=== PATIENT | female | born 1965 | race Caucasian/White ===

== ENCOUNTER → 2017-02-02 | Outpatient (CLI) | payer BC, OTHER ==
--- NOTE | 2017-02-02 15:22 | PCVCIMAG ---
APPROVED REPORT Study performed: 02/02/2017 14:18:25 EXAM: Comprehensive 2D, Doppler, and color-flow Echocardiogram Patient Location: Echo lab Status: routine BSA: 1.70 HR: 63 bpmBP: 100/60 mmHg Rhythm: NSR Other Information Study Quality: Adequate Indications Hypotension palpitations 2D Dimensions IVSd: 6.95 (7-11mm)LVOT Diam: 19.14 (18-24mm) LVDd: 38.38 mm PWd: 7.05 (7-11mm)Ascending Ao: 21.67 (22-36mm) LVDs: 28.54 (25-40mm) Left Atrium: 24.09 (27-40mm) Aortic Root: 24.66 mm LV Single Plane 4CH: 68.75 % Bravo's LVEF: 51.15 % Volumes Left Atrial Volume (Systole) Single Plane 4CH: 25.61 mLSingle Plane 2CH: 24.79 mL LA ESV Index: 16.00 mL/m2 Aortic Valve AoV Peak Erik.: 1.54 m/s AO Peak Gr.: 9.47 mmHgLVOT Max P.08 mmHg LVOT Max V: 1.13 m/s GABBIE Vmax: 2.11 cm2 Mitral Valve E/A Ratio: 1.9 MV Decel. Time: 225.08 ms MV E Max Erik.: 0.99 m/s MV A Erik.: 0.53 m/s TDI E/Lateral E': 6.19E/Medial E': 7.62 Medial E' Erik.: 0.13 m/s Lateral E' Erik.: 0.16 m/s Pulmonary Valve PV Peak Gr.: 3.36 mmHg Pulmonary Vein P Vein S: 0.48 m/sP Vein A: 0.32 m/s P Vein D: 0.61 m/sP Vein A Dur.: 58.8 msec P Vein S/D Ratio: 0.79 Tricuspid Valve TR Peak Erik.: 2.59 m/s TR Peak Gr.: 26.78 mmHg Left Ventricle The left ventricle is normal size. There is normal LV segmental wall motion. There is normal left ventricular wall thickness. Left ventricular systolic function is normal. The left ventricular ejection fraction is within the normal range. LVEF is 60-65%. The left ventricular diastolic function is normal. Right Ventricle The right ventricle is normal size. The right ventricular systolic function is normal. Atria The left atrium size is normal. The right atrium size is normal. Aortic Valve The aortic valve is normal in structure. No aortic regurgitation is present. There is no aortic valvular stenosis. Mitral Valve The mitral valve is normal in structure. There is no mitral valve regurgitation noted. No evidence of mitral valve stenosis. Tricuspid Valve The tricuspid valve is normal in structure. Trace tricuspid regurgitation. Pulmonary artery pressure is 34mmhg. Pulmonic Valve The pulmonary valve is normal in structure. There is no pulmonic valvular regurgitation. Great Vessels The aortic root is normal in size. IVC is normal in size and collapses with >50% inspiration Pericardium There is no pericardial effusion. <Conclusion> The left ventricle is normal size. LVEF is 60-65%. The left ventricular diastolic function is normal. The right ventricle is normal size. The left atrium size is normal. The aortic valve is normal in structure. There is no mitral valve regurgitation noted. Trace tricuspid regurgitation. Pulmonary artery pressure is 34mmhg. There is no pericardial effusion.
--- NOTE | 2017-02-02 16:53 | PCVCIMAG ---
EXAM: AORTOILIAC DUPLEX INDICATION: Peripheral arterial disease FINDINGS: AORTA: Suprarenal aorta measures maximum diameter of 2.5 cm. There is not a fusiform infrarenal aortic aneurysm. The infrarenal aorta measures maximum diameter of 1.7 cm. No aortic stenosis. RIGHT COMMON ILIAC ARTERY: Maximum diameter is 1.0 cm. No significant stenosis. RIGHT EXTERNAL ILIAC ARTERY: No significant stenosis. LEFT COMMON ILIAC ARTERY: Maximum diameter is 1.0 cm. No significant stenosis. LEFT EXTERNAL ILIAC ARTERY: No significant stenosis. IMPRESSION: No abdominal aortic aneurysm. No aortoiliac stenosis seen. LOC:[id number]
== END | disposition home or self-care (01) ==
LOC: PCVCIMAG 13:37
PROVIDERS: ATTEND Internal Medicine Cardiovascular Disease
DX: I73.9 Peripheral vascular disease, unspecified (principal); R94.31 Abnormal electrocardiogram [ECG] [EKG]; M19.90 Unspecified osteoarthritis, unspecified site; I77.89 Other specified disorders of arteries and arterioles; E03.9 Hypothyroidism, unspecified; Z90.710 Acquired absence of both cervix and uterus; Z82.49 Family history of ischemic heart disease and other diseases of the circulatory system; Z88.0 Allergy status to penicillin; Z88.5 Allergy status to narcotic agent; Z79.899 Other long term (current) drug therapy; Z91.048 Other nonmedicinal substance allergy status
CPT/HCPCS: 80061; 93306; 93978; G0463

== ENCOUNTER → 2018-11-19 | Outpatient (CLI) | payer BC ==
--- NOTE | 2018-11-19 13:11 | PCVCIMAG ---
APPROVED REPORT Study performed: 11/19/2018 09:05:47 EXAM: Comprehensive 2D, Doppler, and color-flow Echocardiogram Patient Location: Echo lab Room #: [id number]: routine BSA: 1.70 HR: 60 bpmBP: 123/60 mmHg Rhythm: NSR Other Information Study Quality: Adequate Risk Factors: Cardiac Risk Factors: FHX of CAD Indications Palpitations Evaluate for dilated IVC 2D Dimensions IVSd: 7.93 (7-11mm)LVOT Diam: 20.00 (18-24mm) LVDd: 34.29 mm PWd: 8.35 (7-11mm)Ascending Ao: 27.23 (22-36mm) LVDs: 23.09 (25-40mm) Left Atrium: 28.66 (27-40mm) Aortic Root: 24.56 mm LV Single Plane 4CH: 59.63 % LV Single Plane 2CH: 63.44 % Biplane EF: 60.7 % Volumes Left Atrial Volume (Systole) Single Plane 4CH: 33.49 mLSingle Plane 2CH: 22.47 mL LA ESV Index: 16.00 mL/m2 Aortic Valve AoV Peak Erik.: 1.25 m/s AO Peak Gr.: 6.25 mmHgLVOT Max P.56 mmHg LVOT Max V: 0.94 m/s GABBIE Vmax: 2.46 cm2 Mitral Valve E/A Ratio: 1.4 MV Decel. Time: 237.71 ms MV E Max Erik.: 0.80 m/s MV A Erik.: 0.59 m/s IVRT: 55.36 ms TDI E/Lateral E': 6.15E/Medial E': 7.27 Medial E' Erik.: 0.11 m/s Lateral E' Erik.: 0.13 m/s Pulmonary Valve PV Peak Erik.: 0.99 m/sPV Peak Gr.: 3.89 mmHg Pulmonary Vein P Vein S: 0.43 m/sP Vein A: 0.25 m/s P Vein D: 0.55 m/sP Vein A Dur.: 76.1 msec P Vein S/D Ratio: 0.78 Tricuspid Valve RAP Estimate: 7.00 mmHg Left Ventricle The left ventricle is normal size. There is normal LV segmental wall motion. There is normal left ventricular wall thickness. Left ventricular systolic function is normal. The left ventricular ejection fraction is within the normal range. LVEF is 60-65%. The left ventricular diastolic function is normal. Right Ventricle The right ventricle is normal size. The right ventricular systolic function is normal. Atria The left atrium size is normal. The right atrium size is normal. Aortic Valve The aortic valve is normal in structure. Trace aortic regurgitation. There is no aortic valvular stenosis. Mitral Valve The mitral valve is normal in structure. Trace mitral regurgitation. No evidence of mitral valve stenosis. Tricuspid Valve The tricuspid valve is normal in structure. Trace tricuspid regurgitation. Unable to assess PA pressure. Pulmonic Valve The pulmonary valve is normal in structure. There is no pulmonic valvular regurgitation. Great Vessels The aortic root is normal in size. The ascending aorta is normal in size. IVC is mildly dilated and collapses >50% with inspiration. Pericardium There is no pericardial effusion. <Conclusion> The left ventricle is normal size. LVEF is 60-65%. The left ventricular diastolic function is normal. The right ventricle is normal size. The left atrium size is normal. The aortic valve is normal in structure. Trace aortic regurgitation. Trace mitral regurgitation. Trace tricuspid regurgitation. Unable to assess PA pressure. The aortic root is normal in size. There is no pericardial effusion.
== END | disposition home or self-care (01) ==
LOC: PCVCIMAG 08:54
PROVIDERS: ATTEND Internal Medicine Cardiovascular Disease
DX: R00.2 Palpitations (principal); I95.9 Hypotension, unspecified; I77.89 Other specified disorders of arteries and arterioles; Z82.49 Family history of ischemic heart disease and other diseases of the circulatory system
CPT/HCPCS: 93306